=== PATIENT | female | born 1960 | race Caucasian/White ===

== ENCOUNTER 2016-09-27 13:11 | Emergency (ER) | payer OTHER ==
[2016-09-27 13:47] LABS: BASOPHIL 0.6 % (0-2); EOSINOPHIL 1.1 % (0-5); HCT 45.3 % (37.0-47.0); HGB 15.2 g/dl (12.5-16.0); LYMPHOCYTE 21.3 % (15-48); MCH 28.6 pg (25.0-31.0); MCHC 33.6 g/dL (32.0-36.0); MCV 85.3 fL (78.0-100.0); MONOCYTE 4.3 % (0-12); NEUTROPHIL 72.7 % (41-80); PLT 346 K/uL (150-400); RBC 5.31 M/uL (4.20-5.40); RDW 14.5 % (11.5-14.0); WBC 8.2 K/uL (4.0-10.5)
[2016-09-27 13:58] LABS: INR 1.2 (0.9-1.2); PROTHROMBIN TIME 14.8 SECONDS (11.7-14.0); PTT 33.4 SECONDS (23.2-31.4)
[2016-09-27 14:04] LABS: ALBUMIN 4.2 g/dL (3.5-5.0); BILIRUBIN - TOTAL 1.1 mg/dL (0.1-1.0); CREATININE 0.8 mg/dL (0.5-1.0); GLOBULIN (CALCULATION) 3.6 g/dL (2.2-4.2); MAGNESIUM 1.5 mg/dL (1.40-2.10); POTASSIUM 3.4 mmol/L (3.5-5.1); TOTAL PROTEIN 7.8 g/dL (6.4-8.3)
[2016-09-27 14:05] LABS: CKMB 1.76 ng/mL (0.97-4.94)
[2016-09-27 14:20] LABS: MYOGLOBIN 39 ng/mL (26-65); TROPONIN T < 0.010 ng/mL
[2016-09-27 14:21] LABS: PRO-BNP 1689 pg/mL (0-125)
[2016-11-28] MEDS ORDERED: TOPROL XL 50 MG50 MG PO (10:46)
[2016-11-28] MEDS ORDERED: XANAX0.5 MG PO (10:46)
[2016-11-28] MEDS ORDERED: DUONEB 2.5-0.5M1 AMP NEB (10:46)
[2016-11-28] MEDS ORDERED: NORCO 5-325 TA1 EACH PO (10:46)
[2016-11-28] MEDS ORDERED: PROTONIX 40MG T40 MG PO (10:47)
[2016-11-28] MEDS ORDERED: LASIX40 MG PO (10:47)
[2016-11-28] MEDS ORDERED: CARDIZEM CD300 MG PO (10:48)
[2016-11-28] MEDS ORDERED: PROZAC40 MG PO (10:48)
[2016-11-28] MEDS ORDERED: ELIQUIS5 MG PO (10:48)
[2016-11-28] MEDS ORDERED: NICOTINE PATCH1 EAC1 TOP (10:49)
[2016-11-28] MEDS ORDERED: DULERA 200 MCG8.8 GM INH (10:50)
[2016-11-28] MEDS ORDERED: CLARITIN10 MG PO (10:50)
[2016-11-28] MEDS ORDERED: MUCINEX 600MG600 MG PO (10:50)
[2016-11-28] MEDS ORDERED: K-DUR20 MEQ PO (10:50)
[2016-12-12] MEDS ORDERED: HABITROL14 MG TD (09:22)
[2016-12-12] MEDS ORDERED: ZANTAC300 MG PO (09:22)
[2016-12-12] MEDS ORDERED: LOPRESSOR25 MG PO (09:23)
[2016-12-12] MEDS ORDERED: XANAX0.5 MG PO (09:25)
[2016-12-12] MEDS ORDERED: NORCO 5-325 TA1 EACH PO (09:25)
[2016-12-12] MEDS ORDERED: DUONEB 2.5-0.5M1 AMP NEB (10:49)
[2017-01-14] MEDS ORDERED: PERCOCET 10/321 EACH PO (11:51)
[2017-01-14] MEDS ORDERED: LOPRESSOR25 MG PO (11:52)
[2017-01-14] MEDS ORDERED: PROTONIX 40MG T40 MG PO (11:52)
== END 2016-09-27 15:55 | disposition home or self-care (01) ==
LOC: FER 13:11
PROVIDERS: Internal Medicine
DX: F41.9 Anxiety disorder, unspecified (principal); I48.91 Unspecified atrial fibrillation; R05 Cough; J44.9 Chronic obstructive pulmonary disease, unspecified; F17.200 Nicotine dependence, unspecified, uncomplicated; Z88.6 Allergy status to analgesic agent; Z88.5 Allergy status to narcotic agent; Z88.8 Allergy status to other drugs, medicaments and biological substances; Z79.01 Long term (current) use of anticoagulants; Z79.899 Other long term (current) drug therapy
CPT/HCPCS: 36415; 71010; 73610; 80053; 82550; 82553; 83735; 83874; 83880; 84484; 85025; 85610; 85730; 93005; J1885; J2060

== ENCOUNTER 2017-01-05 10:00 | Day surgery (SDCO) | payer OTHER ==
[~2017-01-05] VITALS: Ht 162.6 cm; Wt 110.9 kg
[~2017-01-05 10:00] MED LIST: CARDIZEM CD300 MG PO; CLARITIN10 MG PO; DULERA 200 MCG8.8 GM INH; DUONEB 2.5-0.5M1 AMP NEB; ELIQUIS5 MG PO; HABITROL14 MG TD; K-DUR20 MEQ PO; LASIX40 MG PO; LOPRESSOR25 MG PO; MUCINEX 600MG600 MG PO; NICOTINE PATCH1 EAC1 TOP; NORCO 5-325 TA1 EACH PO; PROTONIX 40MG T40 MG PO; PROZAC40 MG PO; TOPROL XL 50 MG50 MG PO; XANAX0.5 MG PO; ZANTAC300 MG PO
[2017-01-05 10:23] LABS: BASOPHIL 0.5 % (0-2); EOSINOPHIL 1.5 % (0-5); HCT 40.5 % (37.0-47.0); HGB 13.2 g/dl (12.5-16.0); LYMPHOCYTE 21.6 % (15-48); MCH 28.4 pg (25.0-31.0); MCHC 32.6 g/dL (32.0-36.0); MCV 87.1 fL (78.0-100.0); MONOCYTE 5.4 % (0-12); MPV 9.9 fL (6.0-9.5); PLT 308 K/uL (150-400); RBC 4.65 M/uL (4.20-5.40); RDW 17.5 % (11.5-14.0)
[2017-01-05 10:34] LABS: INR 0.96 (0.9-1.2); PROTHROMBIN TIME 11.9 SECONDS (11.4-13.2); PTT 31.2 SECONDS (24.3-32.1)
[2017-01-05 10:35] LABS: D-DIMER 0.52 ug/mLFEU (0.00-0.41)
[2017-01-05 10:40] LABS: ALBUMIN 3.8 g/dL (3.5-5.0); BILIRUBIN - TOTAL 0.3 mg/dL (0.1-1.0); CREATININE 0.7 mg/dL (0.5-1.0); GLOBULIN (CALCULATION) 3.2 g/dL (2.2-4.2); MAGNESIUM 1.52 mg/dL (1.40-2.10); POTASSIUM 2.9 mmol/L (3.5-5.1)
[2017-01-05 10:44] LABS: CKMB 1.83 ng/mL (0.97-4.94); MYOGLOBIN 32 ng/mL (26-65); TROPONIN T < 0.010 ng/mL
[2017-01-05 10:45] LABS: PRO-BNP 3697 pg/mL (0-125)
[2017-01-05 11:55] LABS: MAGNESIUM 1.55 mg/dL (1.40-2.10); PHOSPHORUS 4.1 mg/dL (2.7-4.5)
[2017-01-05 12:03] LABS: FT4 (FREE T4) 0.999 ng/dL (0.93-1.70); TSH (THYROID STIM HORMONE) 3.41 uIU/mL (0.270-4.200)
[2017-01-06 05:44] LABS: HCT 36.9 % (37.0-47.0); HGB 11.6 g/dl (12.5-16.0); MCH 27.5 pg (25.0-31.0); MCHC 31.4 g/dL (32.0-36.0); MCV 87.4 fL (78.0-100.0); MPV 10.3 fL (6.0-9.5); RBC 4.22 M/uL (4.20-5.40); RDW 17.7 % (11.5-14.0); WBC 7.5 K/uL (4.0-10.5)
[2017-01-06 06:14] LABS: CREATININE 0.7 mg/dL (0.5-1.0); MAGNESIUM 1.79 mg/dL (1.40-2.10); PHOSPHORUS 6.5 mg/dL (2.7-4.5); POTASSIUM 3.5 mmol/L (3.5-5.1)
[2017-01-06] MEDS ORDERED: LASIX40 MG PO (11:41)
[2017-01-06] MEDS ORDERED: ELIQUIS5 MG PO (11:41)
[2017-01-06] MEDS ORDERED: CARDIZEM CD120 MG PO (11:41)
[2017-01-06] MEDS ORDERED: K-DUR20 MEQ PO (11:43)
[2017-01-06] MEDS ORDERED: LOPRESSOR25 MG PO (11:43)
[2017-01-06] MEDS ORDERED: PROZAC40 MG PO (11:43)
[2017-01-06] MEDS ORDERED: DULERA 200 MCG8.8 GM INH (11:43)
[2017-01-06] MEDS ORDERED: NORCO 5-325 TA1 EACH PO (11:44)
[2017-01-06] MEDS ORDERED: XANAX0.5 MG PO (11:44)
--- NOTE | 2017-01-06 13:30 | NUR ---
PT BEING D/C HOME. PT AWAITING RIDE HOME. IV REMOVED AND TELE REMOVED. PTS VSS AT THIS TIME
--- NOTE | 2017-01-06 17:59 | NUR ---
PT WAITED FOR RIDE UNTIL 173. PT THEN STATED THAT SHE WAS GOING TO GO DOWNSTAIRS AND WAIT THAT HER RIDE WAS ON HER WAY. PT STABLE AT TIME OF DEPARTURE FROM [facility]. NO DISTRESS NOTED
== END 2017-01-06 17:30 | disposition home or self-care (01) ==
LOC: FER 10:00 → FTCU 11:31
PROVIDERS: Emergency Medicine; Internal Medicine; ADMIT Internal Medicine
DX: I48.91 Unspecified atrial fibrillation (principal); I10 Essential (primary) hypertension; J44.9 Chronic obstructive pulmonary disease, unspecified; F41.1 Generalized anxiety disorder; F32.9 Major depressive disorder, single episode, unspecified; K21.9 Gastro-esophageal reflux disease without esophagitis; K44.9 Diaphragmatic hernia without obstruction or gangrene; E66.01 Morbid (severe) obesity due to excess calories; G89.4 Chronic pain syndrome; M79.7 Fibromyalgia; M19.90 Unspecified osteoarthritis, unspecified site; F17.210 Nicotine dependence, cigarettes, uncomplicated; A41.9 Sepsis, unspecified organism; Z90.49 Acquired absence of other specified parts of digestive tract; Z90.5 Acquired absence of kidney; Z98.51 Tubal ligation status; Z80.3 Family history of malignant neoplasm of breast; Z79.01 Long term (current) use of anticoagulants; Z79.899 Other long term (current) drug therapy
CPT/HCPCS: 36415; 36600; 71010; 80048; 80053; 82550; 82553; 82803; 83605; 83735; 83874; 83880; 84100; 84439; 84443; 84484; 85025; 85379; 85610; 85651; 85730; 86140; 93005; 94640; G0378; J1940; J2405; J3475